=== PATIENT | female | born 1990 | race Two or more races ===

== ENCOUNTER 2018-04-30 06:05 | Inpatient (IN) | payer OTHER ==
[~2018-04-30] VITALS: Ht 165.1 cm; Wt 79.1 kg
[2018-04-30] MEDS ORDERED: NEWBORN KIT ONE (06:10)
[2018-04-30 06:15] VITALS: BP 125/86
[2018-04-30] MEDS: LACTATED RINGERS 1,000 ML IV SCH ×10 (06:15→23:58)
[2018-04-30] MEDS ORDERED: SODIUM CITRATE/CITRIC ACID 30 ML UDC PO ONE (06:30)
[2018-04-30] MEDS ORDERED: PLEASE ENTER ALLERGIES MC SCH (06:30)
[2018-04-30] MEDS ORDERED: METOCLOPRAMIDE 5 MG/ML, 2ML IV ONE (06:30)
[2018-04-30] MEDS ORDERED: LACTATED RINGERS 1,000 ML IVBOLUS ONE (06:30)
[2018-04-30 06:37] LABS: BASOPHILS # (AUTO) 0.03 x10^3/uL (0-0.1); BASOPHILS % (AUTO) 0 % (0-1); EOSINOPHILS # (AUTO) 0.12 x10^3/uL (0-0.4); EOSINOPHILS % (AUTO) 1 % (1-7); LYMPHOCYTES # (AUTO) 3.45 x10^3/uL (1-3.4); LYMPHOCYTES % (AUTO) 41 % (22-44); MD NO; MEAN CORPUSCULAR HEMOGLOBIN 30.1 pg (27.0-34.8); MEAN CORPUSCULAR HGB CONC 33.8 g/dL (32.4-35.8); MEAN PLATELET VOLUME 10.5 fL (7.4-10.4); MONOCYTES # (AUTO) 0.45 x10^3/uL (0.2-0.8); MONOCYTES % (AUTO) 5 % (2-9); NEUTROPHILS # (AUTO) 4.41 x10^3/uL (1.8-6.8); NEUTROPHILS % (AUTO) 52 % (42-75); PLATELET COUNT 159 x10^3/uL (130-400); RED BLOOD COUNT 3.86 x10^6/uL (3.82-5.3); RED CELL DISTRIBUTION WIDTH 14.6 % (9.6-15.2)
[2018-04-30] MEDS ORDERED: OXYTOCIN 30U/ 0.9% NaCL 500ML 500 ML ONE (07:00)
[2018-04-30] MEDS ORDERED: METOCLOPRAMIDE 5 MG/ML, 2ML ONE (07:00)
[2018-04-30] MEDS ORDERED: SODIUM CITRATE/CITRIC ACID 30 ML UDC ONE (07:00)
[2018-04-30] MEDS ORDERED: ONDANSETRON 2MG/ML, 2ML ONE ×2 (07:17→10:25)
[2018-04-30] MEDS ORDERED: PHENYLEPHRINE 10 MG/ML ONE (07:17)
[2018-04-30] MEDS ORDERED: EPHEDRINE 50 MG/ML, 1ML ONE (07:17)
[2018-04-30] MEDS ORDERED: OXYTOCIN 10 UNITS/ML, 1ML ONE (07:17)
[2018-04-30] MEDS ORDERED: morphine SULFATE/PF 0.5 MG/ML, 10ML ONE (07:17)
[2018-04-30] MEDS ORDERED: WATER-INJECTION,STERILE 10 ML IV ONE (07:17)
[2018-04-30] MEDS ORDERED: CEFAZOLIN 1,000 MG ONE (07:17)
[2018-04-30] MEDS: OXYTOCIN 30U/ 0.9% NaCL 500ML 500 ML IV SCH ×4 (07:58→17:58)
[2018-04-30] MEDS ORDERED: morphine SULFATE 10 MG/ML, 1ML IVPush PRN ×2 (08:00)
[2018-04-30] MEDS ORDERED: RHOGAM FROM BLOOD BANK 1 NOTE EA IM/IV ONE (08:00)
[2018-04-30] MEDS ORDERED: MISOPROSTOL 200 MCG TABLET PR PRN (08:00)
[2018-04-30] MEDS ORDERED: DIPH,PERTUSS(ACELL),TET VAC/PF NC IM-VACC PRN (08:00)
[2018-04-30] MEDS ORDERED: OXYcodone/APAP 5/325MG TABLET PO PRN (08:00)
[2018-04-30] MEDS ORDERED: ONDANSETRON 2MG/ML, 2ML IV PRN (08:00)
[2018-04-30] MEDS ORDERED: CALCIUM CARBONATE 500 MG TAB.CHEW PO PRN (08:00)
[2018-04-30] MEDS ORDERED: OXYcodone IR 5MG TABLET PO PRN (08:00)
[2018-04-30] MEDS ORDERED: MEASLES,MUMPS&RUBELLA VACC/PF 0.5 ML SQ-VACC PRN (08:00)
[2018-04-30] MEDS ORDERED: SIMETHICONE 80 MG CHEW TAB PO PRN (08:00)
[2018-04-30] MEDS: PRENATAL VIT/IRON/FA 1 EACH TABLET PO SCH (09:00)
[2018-04-30 11:05] VITALS: BP 109/71
[2018-04-30] MEDS: KETOROLAC 30 MG/1 ML IV SCH ×2 (12:47→20:07)
[2018-04-30 16:50] VITALS: BP 111/77
[2018-04-30 17:19] LABS: BASOPHILS # (AUTO) 0.04 x10^3/uL (0-0.1); BASOPHILS % (AUTO) 0 % (0-1); EOSINOPHILS # (AUTO) 0.02 x10^3/uL (0-0.4); EOSINOPHILS % (AUTO) 0 % (1-7); LYMPHOCYTES # (AUTO) 2.01 x10^3/uL (1-3.4); LYMPHOCYTES % (AUTO) 19 % (22-44); MD NO; MEAN CORPUSCULAR HGB CONC 33.7 g/dL (32.4-35.8); MEAN CORPUSCULAR VOLUME 88.9 fL (80-100); MEAN PLATELET VOLUME 10.9 fL (7.4-10.4); MONOCYTES # (AUTO) 0.48 x10^3/uL (0.2-0.8); MONOCYTES % (AUTO) 4 % (2-9); NEUTROPHILS # (AUTO) 8.34 x10^3/uL (1.8-6.8); NEUTROPHILS % (AUTO) 77 % (42-75); PLATELET COUNT 126 x10^3/uL (130-400); RED BLOOD COUNT 3.06 x10^6/uL (3.82-5.3); RED CELL DISTRIBUTION WIDTH 14.2 % (9.6-15.2)
[2018-04-30 20:00] VITALS: BP 113/74
[2018-05-01 01:12] VITALS: BP 96/61
[2018-05-01] MEDS: OXYTOCIN 30U/ 0.9% NaCL 500ML 500 ML IV SCH ×2 (02:08→03:58)
[2018-05-01] MEDS: LACTATED RINGERS 1,000 ML IV SCH ×3 (02:30→06:08)
[2018-05-01] MEDS: KETOROLAC 30 MG/1 ML IV SCH ×4 (02:51→20:55)
[2018-05-01 05:15] VITALS: BP 99/62
[2018-05-01 07:27] VITALS: BP 99/62
[2018-05-01] MEDS: DOCUSATE 100 MG CAPSULE PO PRN ×2 (07:51→20:55)
[2018-05-01] MEDS: PRENATAL VIT/IRON/FA 1 EACH TABLET PO SCH (07:51)
[2018-05-01 20:00] VITALS: BP 116/78
[2018-05-02] MEDS: KETOROLAC 30 MG/1 ML IV SCH ×2 (02:56→09:00)
[2018-05-02 08:26] VITALS: BP 114/78
[2018-05-02] MEDS: PRENATAL VIT/IRON/FA 1 EACH TABLET PO SCH (09:37)
[2018-05-02] MEDS: DOCUSATE 100 MG CAPSULE PO PRN (09:37)
[2018-05-02] MEDS: IBUPROFEN 600 MG TABLET PO PRN ×2 (09:37→15:46)
[2018-05-02] MEDS ORDERED: IBUP-1222 PO (12:04)
[2018-05-02] MEDS ORDERED: OXYC-302 PO (12:05)
== END 2018-05-02 19:20 | disposition home or self-care (01) | DRG 788 ==
LOC: LDIP 06:05 → 2NW 11:05
PROVIDERS: ADMIT Obstetrics & Gynecology Gynecology; ATTEND Obstetrics & Gynecology Gynecology
PROC: 10D00Z1 Extraction of Products of Conception, Low, Open Approach (ICD-10-PCS; principal; 2018-04-30)
DX: O34.211 Maternal care for low transverse scar from previous cesarean delivery (principal); Z37.0 Single live birth; Z3A.39 39 weeks gestation of pregnancy; Z82.49 Family history of ischemic heart disease and other diseases of the circulatory system; Z83.3 Family history of diabetes mellitus
CPT/HCPCS: 36415; 82803; 85025; 86850; 86900; G0378; J0690; J1885; J2274; J2405; J2370; J2590; J2765; J7120